=== PATIENT | male | born 1975 | race Caucasian/White ===

== ENCOUNTER → 2024-11-17 | Outpatient (CLI) | payer OTHER ==
--- NOTE | 2024-11-24 11:20 | MR ---
EXAMINATION TYPE: MR liver wo/w con DATE OF EXAM: 11/17/2024 6:59 AM COMPARISON: Ultrasound 08/03/2024 CLINICAL INDICATION: Male, 49 years old with history of K76.9 Liver disease unspecified; PHH, Elevate d liver enzymes, abnormal US. TECHNIQUE: Multiplanar multi-sequence imaging was performed without contrast. Post contrast imaging was performed. Post IV contrast subtraction images were also submitted for review. IV Contrast: 6 mL Gadobutrol FINDINGS: LOWER CHEST: The heart is mildly enlarged for size. ABDOMEN Liver: No evidence for hepatic steatosis or cirrhosis. High T2 signal lesion in the right hepatic dom e measuring 20 x 40 mm with progressive nodular discontinuous enhancement which persists on delayed i maging. Additional smaller high T2 signal lesion which is thought to enhance completely thought 2 rep resent flash filling hemangioma. Gallbladder and Bile ducts: No evidence for ductal dilation, or biliary stricture or evidence of chol edocholithiasis. The gallbladder is within normal limits. Pancreas: No ductal dilation. No evidence for solid mass. Spleen: Normal for size. Adrenal glands: Unremarkable. Kidneys: No evidence for obstructive uropathy. No suspicious renal masses. Left inferior pole lateral 8 mm high T2 signal nonenhancing cysts. Stomach and Bowel: No evidence for bowel wall thickening or evidence for obstruction. Retroperitoneum/Peritoneum: No evidence of pneumoperitoneum or free fluid. Vasculature: No aortic aneurysm. Musculoskeletal: The osseous structures appear intact. Lymph Nodes: No gross evidence for lymphadenopathy. Abdominal wall: Unremarkable. IMPRESSION: 1. Right hepatic dome right hepatic lobe lesions which have benign enhancement characteristics and a re favored to represent hemangiomas. No evidence for cirrhosis or hepatic steatosis. This does not smith ve the classic appearance on ultrasound imaging however short-term follow-up in 6 months with MRI peter er mass protocol recommended for stability. 2. Mild cardiomegaly. 3. Bosniak type I left renal cyst. [facility], , 11/24/2024 11:18 AM
== END | disposition home or self-care (01) ==
LOC: RADMRIMAIN 05:59
PROVIDERS: ATTEND Internal Medicine Gastroenterology
DX: K76.9 Liver disease, unspecified (principal); N28.1 Cyst of kidney, acquired; I51.7 Cardiomegaly
CPT/HCPCS: 74183; A9585